=== PATIENT | female | born 1985 | race African-American/Black ===

== ENCOUNTER 2016-10-13 21:26 | Emergency (ER) | payer OTHER ==
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
[2016-10-13] MEDS ORDERED: MOTRIN PO ONE (22:03)
[2016-10-13 23:36] VITALS: BP 117/78
== END 2016-10-13 23:38 | disposition home or self-care (01) ==
LOC: ED 21:26
DX: S16.1XXA Strain of muscle, fascia and tendon at neck level, initial encounter (principal); V49.59XA Passenger injured in collision with other motor vehicles in traffic accident, initial encounter; Y93.9 Activity, unspecified; Y92.9 Unspecified place or not applicable; Y99.9 Unspecified external cause status
CPT/HCPCS: 99282